=== PATIENT | female | born 1955 | race Caucasian/White ===

== ENCOUNTER 2020-11-05 08:29 | Day surgery (SDC) | payer MEDICARE ==
[~2020-11-05] VITALS: Ht 162.6 cm; Wt 66.3 kg
[2020-11-05 09:27] VITALS: BP 131/88
[2020-11-05] MEDS ORDERED: SODIUM CHLORIDE 0.9% 1,000 ML IV SCH (09:30)
[2020-11-05] MEDS ORDERED: CEFAZOLIN PMX 1GM/50ML 50 ML IV ONE (09:30)
[2020-11-05 10:11] VITALS: BP 131/88
[2020-11-05] MEDS ORDERED: LIDOCAINE 1%, 10ML ONE (10:27)
[2020-11-05] MEDS ORDERED: LIDOCAINE 1%, 20ML ONE (10:27)
[2020-11-05] MEDS ORDERED: NALOXONE 1 MG/ML, 2ML ONE (10:27)
[2020-11-05] MEDS ORDERED: MIDAZOLAM 1 MG/ML, 5ML ONE (10:27)
[2020-11-05] MEDS ORDERED: FLUMAZENIL 0.1 MG/1 ML, 5ML ONE (10:27)
[2020-11-05] MEDS ORDERED: FENTANYL PF 100 MCG/2ML ONE (10:27)
[2020-11-05] MEDS ORDERED: HEPARIN 5,000 UNITS/ML, 1ML ONE (10:27)
== END 2020-11-05 12:45 | disposition home or self-care (01) ==
LOC: OUT 08:29
PROVIDERS: ATTEND Internal Medicine Hematology & Oncology
DX: Z45.2 Encounter for adjustment and management of vascular access device (principal); C43.71 Malignant melanoma of right lower limb, including hip; C79.51 Secondary malignant neoplasm of bone; N18.9 Chronic kidney disease, unspecified; Z79.899 Other long term (current) drug therapy; Z98.890 Other specified postprocedural states; Z85.3 Personal history of malignant neoplasm of breast; Z80.0 Family history of malignant neoplasm of digestive organs; Z72.89 Other problems related to lifestyle
CPT/HCPCS: 36561; 76937; 77001; 99156; 99157; C1788; J0690; J1642; J1644; J2250; J3010; J7030; J2310

== ENCOUNTER 2021-02-07 07:28 | Outpatient (CLI) | payer MEDICARE | END 2021-02-07 23:59 | disposition home or self-care (01) | LOC: ROC 07:28 | PROVIDERS: ATTEND Radiology Radiation Oncology | DX: Z02.9 Encounter for administrative examinations, unspecified (principal) ==

== ENCOUNTER 2021-02-21 07:13 | Outpatient (CLI) | payer MEDICARE | END 2021-02-21 23:59 | disposition home or self-care (01) | LOC: ROC 07:13 | PROVIDERS: ATTEND Radiology Radiation Oncology | DX: Z02.9 Encounter for administrative examinations, unspecified (principal) ==